=== PATIENT | female | born 1960 | race American Indian/Alaskan Native ===

== ENCOUNTER 2018-06-13 15:22 | Emergency (ER) | payer MEDICARE ==
[2018-06-13] MEDS ORDERED: D50W (25GM) Syringe IV ONE (16:26)
[2018-06-13] MEDS ORDERED: GLUCAGEN IM ONE (16:27)
--- NOTE | 2018-06-13 16:32 | Emergency Department Report ---
ED General Adult HPI - General Chief complaint: Hypoglycemia Stated complaint: ALTERED MENTAL STATUS Time Seen by Provider: 06/13/18 16:21 Source: patient, EMS Mode of arrival: Stretcher Limitations: No Limitations - History of Present Illness Initial comments: Presents to the emergency department with a chief complaint of low blood sugar levels. She states that she forgot to eat this morning but still took her insulin. Upon EMS arrival her blood glucose was 14. She was given an amp of D50 and apparently benzos allergen brought to emergency department. Patient's glucose dropped again in the ED. Patient denies chest pain, shortness breath, or headache. -: Sudden Severity scale (0 -10): 0 Consistency: now resolved Improves with: none Worsens with: none Associated Symptoms: denies other symptoms Treatments Prior to Arrival: none - Related Data Allergies Allergy/AdvReac Type Severity Reaction Status Date / Time No Known Allergies Allergy Unverified 06/13/18 15:53 ED Review of Systems ROS: Stated complaint: ALTERED MENTAL STATUS Other details as noted in HPI Comment: All other systems reviewed and negative Constitutional: denies: chills, fever Eyes: denies: eye pain, eye discharge, vision change ENT: denies: ear pain, throat pain Respiratory: denies: cough, shortness of breath, wheezing Cardiovascular: denies: chest pain, palpitations Endocrine: no symptoms reported Gastrointestinal: denies: abdominal pain, nausea, diarrhea Genitourinary: denies: urgency, dysuria, discharge Musculoskeletal: denies: back pain, joint swelling, arthralgia Skin: denies: rash, lesions Neurological: denies: headache, weakness, paresthesias Psychiatric: denies: anxiety, depression Hematological/Lymphatic: denies: easy bleeding, easy bruising ED Past Medical Hx - Past Medical History Hx CVA: (TIA) Hx Diabetes: Yes - Surgical History Hx Appendectomy: Yes Hx Breast Surgery: Yes (lumpectomy) Additional Surgical History: L nephrectomy, partial hysterectomy, R ovary, L rotary cuff - Social History Smoking Status: Never Smoker Substance Use Type: None ED Physical Exam - General Limitations: No Limitations General appearance: alert, in no apparent distress - Head Head exam: Present: atraumatic, normocephalic - Eye Eye exam: Present: normal appearance, PERRL, EOMI - ENT ENT exam: Present: mucous membranes moist - Neck Neck exam: Present: normal inspection - Respiratory Respiratory exam: Present: normal lung sounds bilaterally. Absent: respiratory distress, wheezes, rales, rhonchi - Cardiovascular Cardiovascular Exam: Present: regular rate, normal rhythm. Absent: systolic murmur, diastolic murmur, rubs, gallop - GI/Abdominal GI/Abdominal exam: Present: soft, normal bowel sounds. Absent: distended, tenderness - Extremities Exam Extremities exam: Present: normal inspection - Back Exam Back exam: Present: normal inspection - Neurological Exam Neurological exam: Present: alert, oriented X3, CN II-XII intact. Absent: motor sensory deficit - Psychiatric Psychiatric exam: Present: normal affect, normal mood - Skin Skin exam: Present: warm, dry, intact, normal color. Absent: rash ED Course Vital Signs 06/13/18 15:43 Pulse Rate 80 Respiratory 16 Rate Blood Pressure 152/73 O2 Sat by Pulse 100 Oximetry ED Medical Decision Making - Lab Data Lab Results 06/13/18 06/13/18 Range/Units 15:55 16:56 POC Glucose 60 L 120 H (70-105) - Medical Decision Making Patient's symptoms improved with D50, meal tray, glucagon Discussed results with patient Patient stated she was ready to go home Critical care attestation.: If time is entered above; I have spent that time in minutes in the direct care of this critically ill patient, excluding procedure time. ED Disposition Clinical Impression: Hypoglycemia Disposition: DC-01 TO HOME OR SELFCARE Is pt being admited?: No Does the pt Need Aspirin: No Condition: Stable Instructions: Diabetic Hypoglycemia (ED) Additional Instructions: return if worse Time of Disposition: 17:09
[2018-06-13 18:03] VITALS: BP 129/81
== END 2018-06-13 17:50 | disposition home or self-care (01) ==
LOC: ED 15:22
DX: E11.649 Type 2 diabetes mellitus with hypoglycemia without coma (principal); Z86.73 Personal history of transient ischemic attack (TIA), and cerebral infarction without residual deficits; Z90.49 Acquired absence of other specified parts of digestive tract; Z90.710 Acquired absence of both cervix and uterus
CPT/HCPCS: 82962; 96372; 99283; J1610